=== PATIENT | male | born 1990 | race Caucasian/White ===

== ENCOUNTER 2020-03-12 13:22 | Outpatient (REF) | payer OTHER, SELFPAY | END 2020-03-12 13:23 | disposition home or self-care (01) | LOC: HO.LAB 13:22 | PROVIDERS: Visit Provider Internal Medicine | DX: Z20.828 Contact with and (suspected) exposure to other viral communicable diseases (principal) | CPT/HCPCS: 36415; C9803; U0003 ==

== ENCOUNTER 2021-03-10 11:32 | Outpatient (REF) | payer OTHER, SELFPAY ==
[2021-03-10 13:29] LABS: Binax Internal Control QC Valid; Binax Now Covid-19 Ag Negative (Negative)
== END 2021-03-10 11:33 | disposition home or self-care (01) ==
LOC: HO.LAB 11:32
PROVIDERS: Visit Provider Internal Medicine
DX: Z20.822 Contact with and (suspected) exposure to COVID-19 (principal)
CPT/HCPCS: 36415; C9803

== ENCOUNTER 2021-03-17 10:43 | Emergency (ER) | payer MEDICAID, SELFPAY ==
[2021-03-17 11:46] VITALS: BP 147/86; PULSE 74; RESP 16; O2SAT 100; BMI 34.9
--- NOTE | 2021-03-17 13:24 | ED.LOWEXIN ---
HPI - Extremity Injury (Lower) General Chief Complaint: Extremity Injury, Lower Stated Complaint: R leg injury Time Seen by Provider: 03/17/21 13:08 History of Present Illness HPI Narrative: Patient complains of right leg pain when he was dancing and felt a pop in the back of his right leg yesterday and now the leg hurts and it is hard to walk normally or bear weight on No other injury no other complaint no numbness weakness or tingling Related Data Previous Rx's Medication Instructions Recorded ibuprofen 600 mg tablet 600 mg PO Q6H PRN #30 tab 03/17/21 Allergies Allergy/AdvReac Type Severity Reaction Status Date / Time No Known Allergies Allergy Verified 03/17/21 13:28 Review of Systems Review of Systems: Positive for right leg pain and injury Negatives are no headache no head injury no neck pain no back pain no numbness weakness or tingling no lacerations no other joint pains no other extremity pains Yes all other systems are reviewed and are negative PMFSH Past Medical History Source: nursing notes reviewed Medical History (Updated 03/17/21 @ 13:28 by RADHA Fletcher) No known health problems Social History Social History Advance Directives: No Advance Directives Information Provided: Yes Physical Exam Vital Signs: Vital Signs: Last Vital Signs Pulse 74 03/17/21 11:46 Resp 16 03/17/21 11:46 BP 147/86 H 03/17/21 11:46 Pulse Ox 100 03/17/21 11:46 BMI result Body Mass Index 34.9 General appearance no acute distress comfortable in wheelchair Head is normocephalic atraumatic Neck is supple Respiratory no distress Extremities full range of motion x4 Right leg exam there is tenderness in the posterior calf area it is normal in appearance no ecchymosis no obvious swelling or defect, the knee has full range of motion and is not tender the ankle has full range of motion, leg is neurovascular intact distal and gait is a limping gait Course Course Course Narrative: Patient with likely muscle tear to right lower leg is given an Jerome bandage and crutches and will follow with orthopedics Discharge Plan Discharge Clinical Impression: Muscle tear Patient Disposition: Home, Self-Care Additional Instructions: You tore muscle in the back of your right leg Usually this improves quickly but you will not be back to full activity for 4-8 weeks, but usually walking becomes a lot easier within several days Follow with orthopedist, physical therapy may be helpful if needed Return any time any worse condition or any concerns You could use Tylenol or Motrin as needed Prescriptions: New ibuprofen 600 mg tablet 600 mg PO Q6H PRN (Reason: pain) Qty: 30 RF: 0 Referrals: Guanakito Mayer MD [Physician] - 10 days (Right calf muscle tear) Stand Alone Forms: Work/School Release Discharge Date/Time: 03/17/21 14:56
== END 2021-03-17 14:56 | disposition home or self-care (01) ==
PROVIDERS: Emergency Provider Emergency Medicine
DX: S86.911A Strain of unspecified muscle(s) and tendon(s) at lower leg level, right leg, initial encounter (principal); X50.1XXA Overexertion from prolonged static or awkward postures, initial encounter; Y93.41 Activity, dancing; Y92.9 Unspecified place or not applicable; Y99.9 Unspecified external cause status
CPT/HCPCS: 99281; 99283

== ENCOUNTER 2021-07-21 13:06 | Outpatient (REF) | payer MEDICAID, SELFPAY ==
[2021-07-21 13:57] LABS: COVID-19 Test Positive (Negative)
== END 2021-07-21 13:07 | disposition home or self-care (01) ==
LOC: HO.LAB 13:06
PROVIDERS: Visit Provider Internal Medicine
DX: Z20.822 Contact with and (suspected) exposure to COVID-19 (principal)
CPT/HCPCS: 87635; C9803

== ENCOUNTER 2022-04-26 20:17 | Observation (INO) | payer MEDICAID, SELFPAY ==
--- NOTE | ~2022-04-26 | XR_ITS ---
EXAMINATION: XR CHEST, 2 VIEWS CLINICAL INFORMATION: Left-sided chest pain. COMPARISON: None. TECHNIQUE: PA and lateral views of the chest were obtained. FINDINGS: Lungs are clear. No consolidation, pneumothorax, or pleural effusion. Cardiac and mediastinal contours are normal. Pulmonary vasculature is unremarkable. Trachea is midline. Osseous structures are unremarkable. XR/XR chest 2V IMPRESSION: Normal chest radiographs.
[2022-04-26 20:19] VITALS: BP 146/92; PULSE 138; RESP 18; TEMP 36; O2SAT 97; BMI 34.7
--- NOTE | 2022-04-26 20:20 | ED_ITS ---
HPI - Arrhythmia/Palpitations General Chief Complaint: Chest Pain <RADHA Chicas - Last Filed: 04/26/22 20:24> Stated Complaint: Chest pain, palpitations <RADHA Chicas - Last Filed: 04/26/22 20:24> Time Seen by Provider: 04/26/22 22:58 <RADHA Chicas - Last Filed: 04/26/22 20:24> Source: patient <RADHA Mar - Last Filed: 04/27/22 16:04> Mode of arrival: ambulatory <RADHA Mar - Last Filed: 04/27/22 16:04> Limitations: no limitations <RADHA Mar - Last Filed: 04/27/22 16:04> History of Present Illness HPI narrative: 31-year-old male with no past medical history presents for chest pain and palpitations. Patient tells me he has been having palpitations on and off for the past year. Today he was leaving his sister's house and felt sudden 10/10 chest pain. The pain began on his left side and radiated to his shoulder, back, armpit. Patient states that he cannot take a deep breath due to the pain, denies trauma. Pain is intermittent and is 5/10 when I took his history. Patient states he has a slight headache (feels like his typical, pressure to head, without vision changes or dizziness). Patient denies recent procedures and not moving for extended periods of time. Patient is not on blood thinners. Patient denies alcohol use, tobacco use. Patient admits to daily marijuana use, last used prior to arival no other drigs.. Denies nausea, vomiting, bowel changes, visual changes, loss of consciousness,dizziness, lower extremity swelling or pain. No personal cardiac history. Mother has some sort of heart issue he tells me worse she has a pacemaker. No history of sudden cardiac . Patient reports being under a moderate amount of stress due to his mother being sick and his father having dementia. <RADHA Mar - Last Filed: 04/27/22 16:04> Related Data Home Medications: Previous Rx's Medication Instructions Recorded heparin (porcine) 25,000 unit/250 25,000 unit (250 mL) continuous IV 04/27/22 mL in 0.45 % sodium chloride IV infusion .Q0M #6,000 mL soln <RADHA Chicas - Last Filed: 04/26/22 20:24> Allergies/Adverse Reactions: Allergies Allergy/AdvReac Type Severity Reaction Status Date / Time No Known Allergies Allergy Verified 03/17/21 13:28 <RADHA Chicas - Last Filed: 04/26/22 20:24> Review of Systems Review of Systems: Constitutional : No Weight loss, No Fever, No Chills, No Fatigue, No Malaise ENT/Mouth : No sore throat, No Rhinorrhea Eyes: No Eye Pain, No Swelling, No Redness Cardiovascular : + Chest Pain, No SOB, + Dyspnea on Exertion, No Orthopnea, No Edema, + Palpitations Respiratory : No Cough, No Sputum, No Wheezing Gastrointestinal : No Nausea, No Vomiting, No Diarrhea, No Constipation, No abdominal Pain, No Hematochezia, No Melena Genitourinary : No Dysuria, No Urinary Frequency, No Hematuria, Musculoskeletal : No joint pain, No Myalgias, No Joint Swelling Skin : No Skin Lesions, No rash Neuro : No Weakness, No Numbness, No Dizziness, + Headache Psych : No Anxiety/Panic, No Depression All other systems reviewed and are negative <RADHA Mar - Last Filed: 04/27/22 16:04> Yes all other systems are reviewed and are negative <RADHA Mar Last Filed: 04/27/22 16:04> PMFSH Past Medical History Attestation statement: The following information was validated with the patient. <RADHA Mar - Last Filed: 04/27/22 16:04> Source: old records reviewed and nursing notes reviewed <RADHA Mar - Last Filed: 04/27/22 16:04> Medical History: Medical History No known health problems <RADHA Chicas Last Filed: 04/26/22 20:24> Surgical History: Surgical History No pertinent past surgical history <RADHA Chicas Last Filed: 04/26/22 20:24> Family History Family History: Family History (Updated 04/27/22 @ 10:08 by Teo Medina MD) Mother Cardiomyopathy <RADHA Chicas - Last Filed: 04/26/22 20:24> Social History Social History: Social History Use of substances other than those prescribed or required for medical reasons: No Advance Directives: No Advance Directives Information Provided: No service: No Current occupational status: employed <RADHA Chicas - Last Filed: 04/26/22 20:24> Physical Exam Vital Signs: Vital Signs: Last Vital Signs Temp 98.0 F 04/27/22 15:51 Pulse 94 04/27/22 15:51 Resp 16 04/27/22 15:51 BP 133/65 04/27/22 15:51 Pulse Ox 97 04/27/22 15:51 O2 Del Method 04/27/22 15:51 BMI result Body Mass Index 34.7 <RADHA Chicas - Last Filed: 04/26/22 20:24> Vital Signs: Last Vital Signs Temp 98.0 F 04/27/22 15:51 Pulse 94 04/27/22 15:51 Resp 16 04/27/22 15:51 BP 133/65 04/27/22 15:51 Pulse Ox 97 04/27/22 15:51 O2 Del Method 04/27/22 15:51 BMI result Body Mass Index 34.7 vss <RADHA Mar - Last Filed: 04/27/22 16:04> Appearance: Alert.? Oriented X3.? No acute distress.? Head: Normocephalic, atraumatic, no step-offs or deformities Eyes: Pupils equal, round and reactive to light.? ENT: Pharynx normal.? Neck: Normal inspection.? Neck supple.? CVS: Rapid rate normal rhythm likely sinus tachycardia..? Pulses normal.? Respiratory: No respiratory distress.? Breath sounds normal.? Abdomen: Soft and nontender.? Skin: Skin warm and dry.? Normal skin color.? Normal skin turgor.? Extremities: No lower extremity edema.? No calf ttp. 5/5 strength to bilateral upper and lower extremities Back: No midline tenderness, no C-spine tenderness, full range of motion, no CVA tenderness bilaterally Neuro: Oriented X 3.? No motor deficit.? No sensory deficit. CN 2-12 intact . Normal [id number], onek-ud-pamb, steady tandem gait. Normal rapid al ternating movements. NIH stroke scale 0. <RADHA Mar - Last Filed: 04/27/22 16:04> Course Course Course Narrative: RME - 31 yo male with no medical problems presents to the ER for evaluation of heart palpitations and chest tightness that started 10 minutes ago while walking outside. Reports intermittent palpitations for the last year but not as severe, today felt like he was having a heart attack. Smoked marijuana tonight before symptoms started. HR 130-140 in triage with BP 140/90. question anxiety related/THC related - will get EKG, CXR and basic labs. to go for EKG now. <RADHA Chicas - Last Filed: 04/26/22 20:24> Reevaluation(s) Reevaluation #1: CBC appears to be within normal limits. Chemistry with no acute findings requiring intervention. Patient's troponin is noted to be elevated 61.0, repeat troponin ordered at this time, EKG she who is sinus tachycardia no ST elevations or inversions concerning for ischemia. No previous EKGs to compare with. CXR unremarkable. <RADHA Mar - Last Filed: 04/27/22 16:04> Time: 23:47 <RADHA Mar - Last Filed: 04/27/22 16:04> Reevaluation #2: D-dimer negative. Unlikely that this is a PE. Patient's vital signs improved after Toradol. Patient no longer tachycardic, saturating well on room air. He reports pain has completely subsided. Will wait for repeat troponin. <RADHA Mar - Last Filed: 04/27/22 16:04> Time: 00:44 <RADHA Mar Last Filed: 04/27/22 16:04> Reevaluation #3: Documenting at this time due to a down time in the system. Patient's 2nd troponin was elevated, at that time patient was pain free however based off of his family history with mother with pacemaker, sudden-onset chest pain with exertion, elevated troponins plan is to admit patient to the hospital. I did discuss this case with Dr. Medina who agrees with hospital admission. I did ask him if he had any other recommendations in terms of medications, I had only given patient Toradol with relief of symptoms. He he had no further recommendations in terms of medications. Patient to be admitted to the hospital to Dr. Cox <RADHA Mar - Last Filed: 04/27/22 16:04> Medications Administered Generic Name Dose Route Start Last Admin Trade Name Freq PRN Reason Stop Dose Admin Docusate Sodium 100 mg 04/27/22 09:00 04/27/22 10:07 Docusate Sodium 100 Mg Capsule PO 100 mg BID ARIANA Administration Heparin Sodium/Sodium Chloride 25,000 unit in 250 mls @ 0 mls/hr 04/27/22 15:00 04/27/22 15:44 Heparin Sodium,Porcine/1/2ns IVCONT 12 units/kg/hr .Q0M ARIANA 9.92 mls/hr Administration Protocol Per Protocol Sodium Chloride 3 ml 04/27/22 08:00 04/27/22 14:31 0.9 % Sodium Chloride Flush 3 Ml Syringe IVFLUSH 3 ml QSHIFT ARIANA Administration Discontinued Medications Generic Name Dose Route Start Last Admin Trade Name Freq PRN Reason Stop Dose Admin Aspirin 325 mg 04/27/22 14:22 04/27/22 14:31 Aspirin Enteric Coated 325 Mg Tablet.Dr YUN 04/27/22 14:23 325 mg ONCE ONE Administration Heparin Sodium (Porcine) 4,000 unit 04/27/22 14:24 04/27/22 15:29 Heparin Sodium,Porcine 5,000 Unit/Ml Vial IVPUSH 04/27/22 14:25 4,000 unit ONCE ONE Administration Ketorolac Tromethamine 30 mg 04/27/22 00:06 04/27/22 00:33 Ketorolac Tromethamine 15 Mg/Ml Vial IM 04/27/22 00:07 30 mg ONCE ONE Administration <RADHA Chicas - Last Filed: 04/26/22 20:24> Medications Administered Generic Name Dose Route Start Last Admin Trade Name Freq PRN Reason Stop Dose Admin Docusate Sodium 100 mg 04/27/22 09:00 04/27/22 10:07 Docusate Sodium 100 Mg Capsule PO 100 mg BID ARIANA Administration Heparin Sodium/Sodium Chloride 25,000 unit in 250 mls @ 0 mls/hr 04/27/22 15:00 04/27/22 15:44 Heparin Sodium,Porcine/1/2ns IVCONT 12 units/kg/hr .Q0M ARIANA 9.92 mls/hr Administration Protocol Per Protocol Sodium Chloride 3 ml 04/27/22 08:00 04/27/22 14:31 0.9 % Sodium Chloride Flush 3 Ml Syringe IVFLUSH 3 ml QSHIFT ARIANA Administration Discontinued Medications Generic Name Dose Route Start Last Admin Trade Name Samson PRN Reason Stop Dose Admin Aspirin 325 mg 04/27/22 14:22 04/27/22 14:31 Aspirin Enteric Coated 325 [address] Tablet.Dr YUN 04/27/22 14:23 325 mg ONCE ONE Administration Heparin Sodium (Porcine) 4,000 unit 04/27/22 14:24 04/27/22 15:29 Heparin Sodium,Porcine 5,000 Unit/Ml Vial IVPUSH 04/27/22 14:25 4,000 unit ONCE ONE Administration Ketorolac Tromethamine 30 mg 04/27/22 00:06 04/27/22 00:33 Ketorolac Tromethamine 15 Mg/Ml Vial IM 04/27/22 00:07 30 mg ONCE ONE Administration <RADHA Mar - Last Filed: 04/27/22 16:04> Medical Decision Making Medical Decision Making MDM Narrative: 31-year-old male presents with chest pain and palpitations worsening over the past few hours. Physical exam benign although patient does report pain with deep breathing History and physical examination concerning for possible anxiety, or noncardiac related chest pain. Low suspicion for ACS, PE. No recent illness lowering suspicion for pericardiits however still some concern. History and physical e xam not consistent with dissection, myocarditis or endocarditis. Plan at this time basic labs, troponin, EKG, D-dimer. <RADHA Mar Last Filed: 04/27/22 16:04> Differential Diagnosis Differential Diagnoses: The differential diagnosis associated with the presentation includes <RADHA Mar Last Filed: 04/27/22 16:04> History and physical examination concerning for possible anxiety, or noncardiac related chest pain. Low suspicion for ACS, PE. No recent illness lowering suspicion for pericardiits however still some concern. History and physical exam not consistent with dissection, myocarditis or endocarditis. <RADHA Mar - Last Filed: 04/27/22 16:04> Admission/Observation Consideration of admission/observation: Escalation of care including admission/observation considered <RADHA Mar - Last Filed: 04/27/22 16:04> Lab Data MDM Lab Attestation statement: I reviewed the patient's lab results. <RADHA Mar - Last Filed: 04/27/22 16:04> Result Diagrams: 04/26/22 20:37 04/26/22 20:37 <RADHA Chicas - Last Filed: 04/26/22 20:24> Labs: Lab Results 04/26/22 04/26/22 04/26/22 Range/Units 20:37 20:37 22:25 WBC 9.4 (4.8-10.8) X10*3/uL RBC 5.38 (4.60-5.80) X10*6/uL Hgb 16.0 (14.0-18.0) g/dl Hct 45.5 (42.0-52.0) % MCV 84.6 (80.0-98.0) fL MCH 29.7 (27.0-33.0) pg MCHC 35.2 (31.0-36.0) g/dl RDW 11.9 (11.0-16.0) % Plt Count 243 (160-400) X10*3/uL MPV 10.2 (9.4-12.4) fL Immature Gran % (Auto) 0.2 (0.0-0.4) % Neut % (Auto) 59.8 (45-73) % Lymph % (Auto) 33.3 (20-40) % [place] % (Auto) 5.6 (2-11) % Eos % (Auto) 0.6 (0-4) % Baso % (Auto) 0.5 (0-2) % Lymph # (Auto) 3.1 (1.2-4.9) X10*3/uL [place] # (Auto) 0.5 (0.1-1.2) X10*3/uL Eos # (Auto) 0.1 (0.0-0.4) X10*3/uL Baso # (Auto) 0.1 (0.0-0.2) X10*3/uL Abs Immat Gran (auto) 0.02 (0.00-0.03) X10*3/uL Absolute Neuts (auto) 5.6 (2.0-8.3) x10*3/uL Absolute Nucleated RBC 0.000 (0.0-0.012) X10*3/uL Nucleated RBC % (auto) 0.0 (0.0-0.2) /100WBC D-Dimer High Sensitivty NG/ML Sodium 142 (135-145) mmol/L Potassium 3.5 (3.3-5.1) mmol/L Chloride 104 (96-108) mmol/L Carbon Dioxide 25 (22-29) mmol/L Anion Gap 17 (12-20) BUN 16 (9-16) mg/dL Creatinine 1.31 (0.5-1.4) mg/dL Estim Creat Clear Calc 76.9 Estimated GFR > 60 Random Glucose 179 H (60-115) mg/dL Calcium 9.7 (8.4-10.2) mg/dL Magnesium 1.7 (1.6-2.6) mg/dL Total Bilirubin 1.0 (0.0-1.0) mg/dL Direct Bilirubin 0.3 (0.0-0.5) mg/dL AST 19 (5-37) U/L ALT 25 (0-40) U/L Alkaline Phosphatase 58 (39-117) U/L Troponin I High Sens 61.0 H (<3.5-35.0) ng/L Total Protein 7.2 (6.5-8.0) g/dL Albumin 4.8 (3.5-5.0) g/dL TSH 0.52 (0.32-4.0) uIU/mL COVID-19 ([facility]) (Negative) COVID-19 Clin Com 04/27/22 04/27/22 04/27/22 Range/Units 00:23 00:23 02:20 WBC (4.8-10.8) X10*3/uL RBC (4.60-5.80) X10*6/uL Hgb (14.0-18.0) g/dl Hct (42.0-52.0) % MCV (80.0-98.0) fL MCH (27.0-33.0) pg MCHC (31.0-36.0) g/dl RDW (11.0-16.0) % Plt Count (160-400) X10*3/uL MPV (9.4-12.4) fL Immature Gran % (Auto) (0.0-0.4) % Neut % (Auto) (45-73) % Lymph % (Auto) (20-40) % [place] % (Auto) (2-11) % Eos % (Auto) (0-4) % Baso % (Auto) (0-2) % Lymph # (Auto) (1.2-4.9) X10*3/uL [place] # (Auto) (0.1-1.2) X10*3/uL Eos # (Auto) (0.0-0.4) X10*3/uL Baso # (Auto) (0.0-0.2) X10*3/uL Abs Immat Gran (auto) (0.00-0.03) X10*3/uL Absolute Neuts (auto) (2.0-8.3) x10*3/uL Absolute Nucleated RBC (0.0-0.012) X10*3/uL Nucleated RBC % (auto) (0.0-0.2) /100WBC D-Dimer High Sensitivty < 150 NG/ML Sodium (135-145) mmol/L Potassium (3.3-5.1) mmol/L Chloride (96-108) mmol/L Carbon Dioxide (22-29) mmol/L Anion Gap (12-20) BUN (9-16) mg/dL Creatinine (0.5-1.4) mg/dL Estim Creat Clear Calc Estimated GFR Random Glucose (60-115) mg/dL Calcium (8.4-10.2) mg/dL Magnesium (1.6-2.6) mg/dL Total Bilirubin (0.0-1.0) mg/dL Direct Bilirubin (0.0-0.5) mg/dL AST (5-37) U/L ALT (0-40) U/L Alkaline Phosphatase (39-117) U/L Troponin I High Sens 74.4 H 68.6 H (<3.5-35.0) ng/L Total Protein (6.5-8.0) g/dL Albumin (3.5-5.0) g/dL TSH (0.32-4.0) uIU/mL COVID-19 ([facility]BY) (Negative) COVID-19 Clin Com 04/27/22 Range/Units 03:10 WBC (4.8-10.8) X10*3/uL RBC (4.60-5.80) X10*6/uL Hgb (14.0-18.0) g/dl Hct (42.0-52.0) % MCV (80.0-98.0) fL MCH (27.0-33.0) pg MCHC (31.0-36.0) g/dl RDW (11.0-16.0) % Plt Count (160-400) X10*3/uL MPV (9.4-12.4) fL Immature Gran % (Auto) (0.0-0.4) % Neut % (Auto) (45-73) % Lymph % (Auto) (20-40) % [place] % (Auto) (2-11) % Eos % (Auto) (0-4) % Baso % (Auto) (0-2) % Lymph # (Auto) (1.2-4.9) X10*3/uL [place] # (Auto) (0.1-1.2) X10*3/uL Eos # (Auto) (0.0-0.4) X10*3/uL Baso # (Auto) (0.0-0.2) X10*3/uL Abs Immat Gran (auto) (0.00-0.03) X10*3/uL Absolute Neuts (auto) (2.0-8.3) x10*3/uL Absolute Nucleated RBC (0.0-0.012) X10*3/uL Nucleated RBC % (auto) (0.0-0.2) /100WBC D-Dimer High Sensitivty NG/ML Sodium (135-145) mmol/L Potassium (3.3-5.1) mmol/L Chloride (96-108) mmol/L Carbon Dioxide (22-29) mmol/L Anion Gap (12-20) BUN (9-16) mg/dL Creatinine (0.5-1.4) mg/dL Estim Creat Clear Calc Estimated GFR Random Glucose (60-115) mg/dL Calcium (8.4-10.2) mg/dL Magnesium (1.6-2.6) mg/dL Total Bilirubin (0.0-1.0) mg/dL Direct Bilirubin (0.0-0.5) mg/dL AST (5-37) U/L ALT (0-40) U/L Alkaline Phosphatase (39-117) U/L Troponin I High Sens (<3.5-35.0) ng/L Total Protein (6.5-8.0) g/dL Albumin (3.5-5.0) g/dL TSH (0.32-4.0) uIU/mL COVID-19 ([facility]) Negative (Negative) COVID-19 Clin Com See Note <RADHA Chicas - Last Filed: 04/26/22 20:24> Lab Results 04/26/22 04/26/22 04/26/22 Range/Units 20:37 20:37 22:25 WBC 9.4 (4.8-10.8) X10*3/uL RBC 5.38 (4.60-5.80) X10*6/uL Hgb 16.0 (14.0-18.0) g/dl Hct 45.5 (42.0-52.0) % MCV 84.6 (80.0-98.0) fL MCH 29.7 (27.0-33.0) pg MCHC 35.2 (31.0-36.0) g/dl RDW 11.9 (11.0-16.0) % Plt Count 243 (160-400) X10*3/uL MPV 10.2 (9.4-12.4) fL Immature Gran % (Auto) 0.2 (0.0-0.4) % Neut % (Auto) 59.8 (45-73) % Lymph % (Auto) 33.3 (20-40) % [place] % (Auto) 5.6 (2-11) % Eos % (Auto) 0.6 (0-4) % Baso % (Auto) 0.5 (0-2) % Lymph # (Auto) 3.1 (1.2-4.9) X10*3/uL [place] # (Auto) 0.5 (0.1-1.2) X10*3/uL Eos # (Auto) 0.1 (0.0-0.4) X10*3/uL Baso # (Auto) 0.1 (0.0-0.2) X10*3/uL Abs Immat Gran (auto) 0.02 (0.00-0.03) X10*3/uL Absolute Neuts (auto) 5.6 (2.0-8.3) x10*3/uL Absolute Nucleated RBC 0.000 (0.0-0.012) X10*3/uL Nucleated RBC % (auto) 0.0 (0.0-0.2) /100WBC D-Dimer High Sensitivty NG/ML Sodium 142 (135-145) mmol/L Potassium 3.5 (3.3-5.1) mmol/L Chloride 104 (96-108) mmol/L Carbon Dioxide 25 (22-29) mmol/L Anion Gap 17 (12-20) BUN 16 (9-16) mg/dL Creatinine 1.31 (0.5-1.4) mg/dL Estim Creat Clear Calc 76.9 Estimated GFR > 60 Random Glucose 179 H (60-115) mg/dL Calcium 9.7 (8.4-10.2) mg/dL Magnesium 1.7 (1.6-2.6) mg/dL Total Bilirubin 1.0 (0.0-1.0) mg/dL Direct Bilirubin 0.3 (0.0-0.5) mg/dL AST 19 (5-37) U/L ALT 25 (0-40) U/L Alkaline Phosphatase 58 (39-117) U/L Troponin I High Sens 61.0 H (<3.5-35.0) ng/L Total Protein 7.2 (6.5-8.0) g/dL Albumin 4.8 (3.5-5.0) g/dL TSH 0.52 (0.32-4.0) uIU/mL COVID-19 ([facility]) (Negative) COVID-19 Clin Com 04/27/22 04/27/22 04/27/22 Range/Units 00:23 00:23 02:20 WBC (4.8-10.8) X10*3/uL RBC (4.60-5.80) X10*6/uL Hgb (14.0-18.0) g/dl Hct (42.0-52.0) % MCV (80.0-98.0) fL MCH (27.0-33.0) pg MCHC (31.0-36.0) g/dl RDW (11.0-16.0) % Plt Count (160-400) X10*3/uL MPV (9.4-12.4) fL Immature Gran % (Auto) (0.0-0.4) % Neut % (Auto) (45-73) % Lymph % (Auto) (20-40) % [place] % (Auto) (2-11) % Eos % (Auto) (0-4) % Baso % (Auto) (0-2) % Lymph # (Auto) (1.2-4.9) X10*3/uL [place] # (Auto) (0.1-1.2) X10*3/uL Eos # (Auto) (0.0-0.4) X10*3/uL Baso # (Auto) (0.0-0.2) X10*3/uL Abs Immat Gran (auto) (0.00-0.03) X10*3/uL Absolute Neuts (auto) (2.0-8.3) x10*3/uL Absolute Nucleated RBC (0.0-0.012) X10*3/uL Nucleated RBC % (auto) (0.0-0.2) /100WBC D-Dimer High Sensitivty < 150 NG/ML Sodium (135-145) mmol/L Potassium (3.3-5.1) mmol/L Chloride (96-108) mmol/L Carbon Dioxide (22-29) mmol/L Anion Gap (12-20) BUN (9-16) mg/dL Creatinine (0.5-1.4) mg/dL Estim Creat Clear Calc Estimated GFR Random Glucose (60-115) mg/dL Calcium (8.4-10.2) mg/dL Magnesium (1.6-2.6) mg/dL Total Bilirubin (0.0-1.0) mg/dL Direct Bilirubin (0.0-0.5) mg/dL AST (5-37) U/L ALT (0-40) U/L Alkaline Phosphatase (39-117) U/L Troponin I High Sens 74.4 H 68.6 H (<3.5-35.0) ng/L Total Protein (6.5-8.0) g/dL Albumin (3.5-5.0) g/dL TSH (0.32-4.0) uIU/mL COVID-19 ([facility]) (Negative) COVID-19 Clin Com 04/27/22 Range/Units 03:10 WBC (4.8-10.8) X10*3/uL RBC (4.60-5.80) X10*6/uL Hgb (14.0-18.0) g/dl Hct (42.0-52.0) % MCV (80.0-98.0) fL MCH (27.0-33.0) pg MCHC (31.0-36.0) g/dl RDW (11.0-16.0) % Plt Count (160-400) X10*3/uL MPV (9.4-12.4) fL Immature Gran % (Auto) (0.0-0.4) % Neut % (Auto) (45-73) % Lymph % (Auto) (20-40) % [place] % (Auto) (2-11) % Eos % (Auto) (0-4) % Baso % (Auto) (0-2) % Lymph # (Auto) (1.2-4.9) X10*3/uL [place] # (Auto) (0.1-1.2) X10*3/uL Eos # (Auto) (0.0-0.4) X10*3/uL Baso # (Auto) (0.0-0.2) X10*3/uL Abs Immat Gran (auto) (0.00-0.03) X10*3/uL Absolute Neuts (auto) (2.0-8.3) x10*3/uL Absolute Nucleated RBC (0.0-0.012) X10*3/uL Nucleated RBC % (auto) (0.0-0.2) /100WBC D-Dimer High Sensitivty NG/ML Sodium (135-145) mmol/L Potassium (3.3-5.1) mmol/L Chloride (96-108) mmol/L Carbon Dioxide (22-29) mmol/L Anion Gap (12-20) BUN (9-16) mg/dL Creatinine (0.5-1.4) mg/dL Estim Creat Clear Calc Estimated GFR Random Glucose (60-115) mg/dL Calcium (8.4-10.2) mg/dL Magnesium (1.6-2.6) mg/dL Total Bilirubin (0.0-1.0) mg/dL Direct Bilirubin (0.0-0.5) mg/dL AST (5-37) U/L ALT (0-40) U/L Alkaline Phosphatase (39-117) U/L Troponin I High Sens (<3.5-35.0) ng/L Total Protein (6.5-8.0) g/dL Albumin (3.5-5.0) g/dL TSH (0.32-4.0) uIU/mL COVID-19 ([facility]BY) Negative (Negative) COVID-19 Clin Com See Note <RADHA Mar - Last Filed: 04/27/22 16:04> Independent Interpretation I performed an independent interpretation of an: Plain X-Ray (Unremarkable) <RADHA Mar - Last Filed: 04/27/22 16:04> Radiology Impression Discussion of test interpretation with radiology: I have reviewed the radiologist's reading. <RADHA Mar - Last Filed: 04/27/22 16:04> External Record Review External record reviewed: Inpatient record, Office record, Outpatient record, Prior outpatient labs, Prior outpatient radiology and Primary care record <RADHA Mar - Last Filed: 04/27/22 16:04> Core Measures AMI core measures followed: Yes <RADHA Mar - Last Filed: 04/27/22 16:04> Measure exclusions: not indicated <RADHA Mar - Last Filed: 04/27/22 16:04> Critical Care Time Critical Care Time Critical Care Time: Yes <RADHA Mar - Last Filed: 04/27/22 16:04> Total Critical Care Time: 35 <RADHA Mar - Last Filed: 04/27/22 16:04> Attestation: I attest to this time spent taking care of the patient, obtaining history, physical, reviewing labs, imaging, speaking to my attending, speaking to specialist. <RADHA Mar - Last Filed: 04/27/22 16:04> Discharge Plan Discharge Clinical Impression: Unstable angina pectoris, Heart palpitations, Anxiety <RADHA Chicas - Last Filed: 04/26/22 20:24> Patient Disposition: Admitted As Inpatient <RADHA Chicas - Last Filed: 04/26/22 20:24>
--- NOTE | 2022-04-26 20:23 | ECG_ITS ---
Test Reason : CHEST PAIN Blood Pressure : / mmHG Vent. Rate : 124 BPM Atrial Rate : 124 BPM P-R Int : 122 ms QRS Dur : 086 ms QT Int : 318 ms P-R-T Axes : 060 037 026 degrees QTc Int : 456 ms Sinus tachycardia Possible Left atrial enlargement Nonspecific ST and T wave abnormality Borderline ECG No previous ECGs available Referred By: Anu Hurst Electronically Signed By:CHANCE COOK
[2022-04-26 20:41] LABS: MANUAL DIFF FLAG NO
[2022-04-26 20:42] LABS: Basophils Absolute Auto 0.1 X10*3/uL (0.0-0.2); Basophils Percent Auto 0.5 % (0-2); Eosinophils Absolute Auto 0.1 X10*3/uL (0.0-0.4); Eosinophils Percent Auto 0.6 % (0-4); Hematocrit 45.5 % (42.0-52.0); Imm Gran Abs Auto 0.02 X10*3/uL (0.00-0.03); Imm Gran Pct Auto 0.2 % (0.0-0.4); Lymphocytes Absolute Auto 3.1 X10*3/uL (1.2-4.9); Lymphocytes Percent Auto 33.3 % (20-40); Mean Corpuscular HGB Conc 35.2 g/dl (31.0-36.0); Mean Corpuscular Hemoglobin 29.7 pg (27.0-33.0); Mean Corpuscular Volume 84.6 fL (80.0-98.0); Mean Platelet Volume 10.2 fL (9.4-12.4); Monocytes Absolute Auto 0.5 X10*3/uL (0.1-1.2); Monocytes Percent Auto 5.6 % (2-11); Neutrophils Absolute Auto 5.6 x10*3/uL (2.0-8.3); Neutrophils Percent Auto 59.8 % (45-73); Platelet Count 243 X10*3/uL (160-400); Red Blood Count 5.38 X10*6/uL (4.60-5.80); Red Cell Distribution Width 11.9 % (11.0-16.0); White Blood Count 9.4 X10*3/uL (4.8-10.8)
[2022-04-26 21:03] LABS: Alanine Aminotransferase 25 U/L (0-40); Albumin Level 4.8 g/dL (3.5-5.0); Alkaline Phosphatase 58 U/L (39-117); Anion Gap 17 (12-20); Aspartate Amino Transferase 19 U/L (5-37); Bilirubin Direct 0.3 mg/dL (0.0-0.5); Blood Urea Nitrogen 16 mg/dL (9-16); Calcium 9.7 mg/dL (8.4-10.2); Carbon Dioxide 25 mmol/L (22-29); Chloride 104 mmol/L (96-108); Creatinine Clr Calc Pharmacy 76.9; Estimated Glomerular Filt Rate > 60; Glucose Random 179 mg/dL (60-115); Magnesium 1.7 mg/dL (1.6-2.6); Potassium 3.5 mmol/L (3.3-5.1); Sodium 142 mmol/L (135-145); Total Protein 7.2 g/dL (6.5-8.0)
[2022-04-26 21:18] LABS: TSH reflex Free T4 0.52 uIU/mL (0.32-4.0)
[2022-04-27] VITALS: BP 142/82; PULSE 77; RESP 16; TEMP 36.7; O2SAT 99
--- NOTE | 2022-04-27 | MHC.EDTECH ---
pt was hooked up to cardiac/vascular sonographer .
--- NOTE | 2022-04-27 | MHC.EDTECH ---
this pct assumed care of pt at 2300 ,rounding done ,vitals sign taken ,blood drawn and sent to lab .
[2022-04-27] MEDS: Ketorolac Tromethamine 15 MG/ML VIAL 30 MG IM (00:33)
--- NOTE | 2022-04-27 00:36 | PC.NURSE ---
pt a&o, denies any sob or chest pain at this time, pt medicated pr mar. pt on bedside monitor. NSR. Will continue to monitor.
[2022-04-27 00:40] LABS: D Dimer High Sensitivity < 150 NG/ML
[2022-04-27 00:51] LABS: Troponin-I High Sensitivity 74.4 ng/L (<3.5-35.0)
[2022-04-27 04:58] VITALS: BP 107/53; PULSE 54; RESP 16; TEMP 36.6; O2SAT 97
--- NOTE | 2022-04-27 05:00 | MHC.EDTECH ---
please see paper documentation .
--- NOTE | 2022-04-27 05:09 | PC.NURSE ---
please see paper documentation due to down time.
--- NOTE | 2022-04-27 05:24 | MHC.EDTECH ---
covid swab negitive please see paper chart
--- NOTE | 2022-04-27 05:27 | PC.NURSE ---
pt oob to bathroom no sign of distress at this time.
[2022-04-27 05:46] LABS: COVID-19 Test Negative (Negative); IDNOW Serial# BCCEAD1C
[2022-04-27 05:52] LABS: Troponin-I High Sensitivity 68.6 ng/L (<3.5-35.0)
--- NOTE | 2022-04-27 06:46 | PM.IMHP ---
History of Present Illness Date of Service: 04/27/22 Chief Complaint: chest pain this is a 31-year-old male with no significant past medical history presents to the hospital with complaints of chest pain and palpitations. Patient reports pain is left-sided, radiating to the under arm, constant, occurred when walking, worse with deep inspiration. Reports no similar in the past. Denies any shortness of breath, no abdominal pain nausea or vomiting, no headache or change in vision, no urinary symptoms and no lower extremity edema.he reports that he does have episodes of palpitations at random times are resolved spontaneously. This has been happening for several months. On arrival to the ED patient hemodynamically stable with a heart rate in the 130s sinus Tachycardia, resolved spontaneously now in the 70s Labs are significant for troponin initially of 61 increased to 74.4 decreased to 68.6, patient is COVID-19 positive Asymptomatic with no cough and no shortness of breath EKG reviewed by me shows T-wave inversions in V1, nonspecific ST T wave changes this was discussed with Cardiology, wants patient to be admitted for further evaluation Review of Systems Review of Systems: Yes all other systems are reviewed and are negative [facility] Medical History No known health problems Surgical History No pertinent past surgical history Social History Use of substances other than those prescribed or required for medical reasons: No Advance Directives: No Advance Directives Information Provided: No Meds Allergies Allergy/AdvReac Type Severity Reaction Status Date / Time No Known Allergies Allergy Verified 03/17/21 13:28 Active Medications: Current Medications Acetaminophen (Acetaminophen 325 Mg Tablet) 650 mg PO Q6H PRN PRN Reason: Pain, Mild (Pain Scale 1-3) Docusate Sodium (Docusate Sodium 100 Mg Capsule) 100 mg PO BID ARIANA Ondansetron HCl (Ondansetron Hcl 4 Mg/2 Ml Vial) 4 mg IVPUSH Q8H PRN PRN Reason: Nausea and Vomiting Sodium Chloride (0.9 % Sodium Chloride Flush 3 Ml Syringe) 3 ml IVFLUSH QSHIFT ARIANA Physical Exam Vital Signs and Narrative: Vital Signs: Last Vital Signs Temp 97.9 F 04/27/22 04:58 Pulse 54 04/27/22 04:58 Resp 16 04/27/22 04:58 BP 107/53 L 04/27/22 04:58 Pulse Ox 97 04/27/22 04:58 O2 Del Method 04/27/22 04:58 BMI result Body Mass Index 34.7 Const: General: cooperative and no acute distress Orientation/consciousness: patient oriented x3 Eyes: General: appearance normal, both eyes and all related structures Resp: Effort & Inspection: normal respiratory effort Auscultation: clear to auscultation bilaterally Cardio: Rate: regular rate Rhythm: regular rhythm GI: Palpation (GI): Soft to palpation Auscultation: normal bowel sounds Skin: General skin exam: no rashes or lesions noted Neuro: General: patient oriented x3 Cognition (Neuro): normal cognition Extrem: General: Yes normal to inspection and Yes no pedal edema Results Labs 04/26/22 20:37 04/26/22 20:37 Labs: Laboratory Results - last 24 hr 04/26/22 04/26/22 04/26/22 20:37 20:37 22:25 MCV 84.6 MCH 29.7 MCHC 35.2 RDW 11.9 Plt Count 243 MPV 10.2 Immature Gran % (Auto) 0.2 Neut % (Auto) 59.8 Lymph % (Auto) 33.3 [place] % (Auto) 5.6 Eos % (Auto) 0.6 Baso % (Auto) 0.5 Lymph # (Auto) 3.1 [place] # (Auto) 0.5 Eos # (Auto) 0.1 Baso # (Auto) 0.1 Abs Immat Gran (auto) 0.02 Absolute Neuts (auto) 5.6 Absolute Nucleated RBC 0.000 Nucleated RBC % (auto) 0.0 D-Dimer High Sensitivty Anion Gap 17 Estim Creat Clear Calc 76.9 Estimated GFR > 60 Random Glucose 179 H Calcium 9.7 Magnesium 1.7 Total Bilirubin 1.0 Direct Bilirubin 0.3 AST 19 ALT 25 Alkaline Phosphatase 58 Troponin I High Sens 61.0 H Total Protein 7.2 Albumin 4.8 TSH 0.52 COVID-19 (BOBBY) COVID-19 Clin Com 04/27/22 04/27/22 04/27/22 00:23 00:23 02:20 MCV MCH MCHC RDW Plt Count MPV Immature Gran % (Auto) Neut % (Auto) Lymph % (Auto) [place] % (Auto) Eos % (Auto) Baso % (Auto) Lymph # (Auto) [place] # (Auto) Eos # (Auto) Baso # (Auto) Abs Immat Gran (auto) Absolute Neuts (auto) Absolute Nucleated RBC Nucleated RBC % (auto) D-Dimer High Sensitivty < 150 Anion Gap Estim Creat Clear Calc Estimated GFR Random Glucose Calcium Magnesium Total Bilirubin Direct Bilirubin AST ALT Alkaline Phosphatase Troponin I High Sens 74.4 H 68.6 H Total Protein Albumin TSH COVID-19 (BOBBY) COVID-19 Clin Com 04/27/22 03:10 MCV MCH MCHC RDW Plt Count MPV Immature Gran % (Auto) Neut % (Auto) Lymph % (Auto) [place] % (Auto) Eos % (Auto) Baso % (Auto) Lymph # (Auto) [place] # (Auto) Eos # (Auto) Baso # (Auto) Abs Immat Gran (auto) Absolute Neuts (auto) Absolute Nucleated RBC Nucleated RBC % (auto) D-Dimer High Sensitivty Anion Gap Estim Creat Clear Calc Estimated GFR Random Glucose Calcium Magnesium Total Bilirubin Direct Bilirubin AST ALT Alkaline Phosphatase Troponin I High Sens Total Protein Albumin TSH COVID-19 (BOBBY) Negative COVID-19 Clin Com See Note Imaging Radiologist's Impressions: Impressions Chest X-Ray 04/26/22 20:42 IMPRESSION: Normal chest radiographs. Assessment and Plan (1) Chest pain: Status: Acute (2) Heart palpitations: Status: Acute (3) Elevated troponin: Status: Acute (4) COVID-19 virus infection: Status: Acute Plan 31 year old with no significant past medical history presents to the hospital complaints of palpitations and chest pain found to have COVID-19 positive # chest pain - ACS versus pericarditis - slightly elevated troponin - urine drug screen pending - no risk factors - no family history - at this time will admit, cardiology consult for evaluation # palpitations - likely sinus, EKG shows sinus tachycardia - UDS pending but patient denies using any cocaine or heroin - admit to telemetry # elevated troponin - possibly secondary to above - pericarditis in the setting of acute COVID infection versus ACS - cardiology evaluation pending # COVID-19 infection - asymptomatic with no shortness of breath or hypoxia - possibly cause of above - monitor symptoms DVT prophylaxis: Early ambulation Time Spent With Patient Time: Total time managing care of this patient today ____ minutes. Quality Stroke Does the patient have a stroke diagnosis?: No VTE Prior VTE?: No VTE Risk Level:: Medical - low VTE Device Contraindication: Treatment Not Indicated VTE Drug Contraindication: Treatment Not Indicated
[2022-04-27 07:04] LABS: MANUAL DIFF FLAG NO
[2022-04-27 07:06] LABS: Basophils Percent Auto 0.7 % (0-2); Eosinophils Absolute Auto 0.2 X10*3/uL (0.0-0.4); Eosinophils Percent Auto 3.9 % (0-4); Hematocrit 41.5 % (42.0-52.0); Hemoglobin 14.7 g/dl (14.0-18.0); Imm Gran Abs Auto 0.01 X10*3/uL (0.00-0.03); Imm Gran Pct Auto 0.2 % (0.0-0.4); Lymphocytes Absolute Auto 2.6 X10*3/uL (1.2-4.9); Lymphocytes Percent Auto 43.2 % (20-40); Mean Corpuscular HGB Conc 35.4 g/dl (31.0-36.0); Mean Corpuscular Hemoglobin 30.6 pg (27.0-33.0); Mean Corpuscular Volume 86.5 fL (80.0-98.0); Mean Platelet Volume 10.9 fL (9.4-12.4); Monocytes Absolute Auto 0.6 X10*3/uL (0.1-1.2); Monocytes Percent Auto 9.5 % (2-11); Neutrophils Absolute Auto 2.5 x10*3/uL (2.0-8.3); Neutrophils Percent Auto 42.5 % (45-73); Platelet Count 192 X10*3/uL (160-400); Red Cell Distribution Width 12.1 % (11.0-16.0)
[2022-04-27 07:35] LABS: Alanine Aminotransferase 21 U/L (0-40); Albumin Level 4.2 g/dL (3.5-5.0); Alkaline Phosphatase 49 U/L (39-117); Anion Gap 15 (12-20); Aspartate Amino Transferase 17 U/L (5-37); Bilirubin Total 1.1 mg/dL (0.0-1.0); Blood Urea Nitrogen 19 mg/dL (9-16); Calcium 9.3 mg/dL (8.4-10.2); Carbon Dioxide 27 mmol/L (22-29); Chloride 105 mmol/L (96-108); Creatinine Clr Calc Pharmacy 103.9; Estimated Glomerular Filt Rate > 60; Glucose Random 124 mg/dL (60-115); Potassium 3.5 mmol/L (3.3-5.1); Sodium 143 mmol/L (135-145); Total Protein 6.3 g/dL (6.5-8.0)
[2022-04-27 07:40] LABS: Amphetamine Screen Urine Not Detected (Not Detect); Barbiturates, Urine Not Detected (Not Detect); Benzodiazepines Screen Urine Not Detected (Not Detect); Cannabinoid Screen Urine POSITIVE (Not Detect); Cocaine Screen Urine Not Detected (Not Detect); Fentanyl, urine Not Detected (Not Detect); Opiate Screen Urine Not Detected (Not Detect); Phencyclidine Screen Urine Not Detected (Not Detect)
[2022-04-27 08:50] VITALS: BP 101/60; PULSE 76; RESP 18; TEMP 36.7; O2SAT 99
--- NOTE | 2022-04-27 09:00 | PHA.MEDREC ---
Pharmacy Consult ? Medication Reconciliation Pharmacy has completed the medication reconciliation. Patient reports no medications at home. Marian Benites, FrantzD
--- NOTE | 2022-04-27 09:37 | CA_ITS ---
Transthoracic Echocardiogram Patient (Last, First, Middle): Dash Roman, Gender: Male Date of : 1990 Age: 31 Procedure Date: 04/27/2022 Procedure Type: Transthoracic Echocardiogram Location: ER Height: 157.48 cm Weight: 86.18 kg BSA: 1.87 m2 Heart Rate: bpm BP: 101 / mmHg Occupational Ther: ROSARIO Referring MD: Teo Medina MD Symptoms: chest pain Study Quality: Adequate ECG Rhythm: Sinus Conclusions: - The left ventricular systolic function is normal. The calculated ejection fraction is 67% by biplane method. - No obvious valvular pathology seen on this study. Findings Left Ventricle Normal left ventricular cavity size. There is normal left ventricular wall thickness. The left ventricular systolic function is normal. The calculated ejection fraction is 67% by biplane method. There is no evidence of regional wall motion abnormalities. Diastolic function is normal for age. LV peak GLS -21.5%. Right Ventricle Normal right ventricular cavity size and systolic function. Atria Both atria are normal in size. Aortic Valve There is a normal trileaflet aortic valve. There is no aortic valve stenosis. There is no aortic valve regurgitation. Mitral Valve The mitral valve appears normal. There is no mitral valve regurgitation. There is no mitral valve stenosis. Pulmonic Valve The pulmonic valve is likely normal. Tricuspid Valve Normal tricuspid valve structure. There is no tricuspid valve regurgitation. Tricuspid regurgitation envelope is inadequate for calculation of right ventricular systolic pressure. Great Vessels The asc aorta is normal in size. Venous The inferior vena cava is normal in size and collapses greater than 50% with inspiration. Pericardium/Pleural There is no evidence of pericardial effusion. Prior Study Comparison No prior study available for comparison. Recommendations, Care & Conclusions No obvious valvular pathology seen on this study. Measurements 2D Linear Measurements IVSd: 0.99 0.6-0.9/0.6-1.0 cm LVIDd: 4.69 3.9-5.3/4.2-5.9 cm LVIDd Index: 2.51 2.4-3.2/2.2-3.1 cm/m2 LVIDs: 2.88 2.0-3.6 cm LVPWd: 0.96 0.7-1.1 cm LA Diam: 3.30 2.7-3.8/3.0-4.0 cm LAIDs Index: 1.76 1.5-2.3 cm/m2 LV Mass: 196.63 67-162/88-224 g LV Mass Index: 105.15 43-95/49-115 g/m2 LVOT Diam: 2.10 3.0+(-)1.3 cm 2D Systolic Function EF 4C: 64.20 >55% EF 2C: 67.50 >55% EF BiP: 67.30 >55% Mitral Valve MV Pk E: 0.73 MV PK A: 0.39 MV Decel Time: 296.00 E/A: 1.90 E'Lateral: 13.80 E'Medial: 10.60 E/E' Med: 6.90 E/E' Lat: 5.30 PHT: 87.00 MVA PHT: 2.53 Decel [place]: 2.46 Aortic Valve AoV Pk Ulices: 1.55 AoV Mn Ulices: 1.00 AoV VTI: 0.32 AoV Pk Grad: 10.00 Aov Mn Grad: 5.00 OWEN Cont.VTI: 2.32 LVOT LVOT Pk Luices: 1.04 LVOT Mn Ulices: 0.65 LVOT VTI: 0.21 LVOT Pk Grad: 4.00 LVOT Mn Grad: 2.00 LVOT Diam: 2.10 LVOT Area: 3.46 Diastolic Function MV Pk E: 0.73 MV Pk A: 0.39 E/A: 1.90 E'Medial: 10.60 E/E' Med: 6.90 E' Laterial: 13.80 E/E' Lat: 5.30 Right Ventricle TAPSE (mm): 24.00 TVS' Ulices: 12.70 Tricuspid Valve RA Press: 3.00 Great Vessels Aorta Sinus of Valsalva: 2.82 2.0-3.[address] [place]: 2.17 1.7-3.4 cm Ao Asc: 2.30 2.1-3.4 cm Updated in Other Vendor System with Status of Final Teo Medina MD electronically signed on 04/27/2022 11:40:05 AM with status of Final
--- NOTE | 2022-04-27 10:05 | PM.CNCAR ---
History of Present Illness History of Present Illness Date of Service: 04/27/22 Chief complaint: Chest pain Narrative: This is a cardiology consultation regarding chest pain. Patient presents with pain in the substernal area and left chest. Radiating the left underarm. Has been constant. Present during rest as well as exertion. In the H and P, mention to have worsening with deep inspiration but to me he denies that part. Shortness of breath somewhat variable. On some occasions, he has had some breathing issues going up stairs but not other times. Can walk fine on level ground. No significant leg swelling. Sensation of heart racing at different times and this happened several times in the past. No viral illness preceding this. No history of any coronary disease myocardial infarction or cardiomyopathy or any other cardiac issues. Of note, patient is mentioned to be COVID positive in the H&P but in the actual lab test, this is negative. Regarding family history, not very clear but mother might have cardiomyopathy. He states that she was told to have a heart function of 26%. And that she needs a pacemaker. Hence wonder if she has the underlying cardiomyopathy and requires ICD. Patient does not know beyond this. Review of Systems Review of Systems: Yes all other systems are reviewed and are negative Constitutional: Constitutional: Reports as per HPI and Reports no additional constitutional complaints Eyes: Eyes: Reports as per HPI and Denies no additional eye complaints ENT: Denies system reviewed and no additional complaints, except as documented and Reports as per HPI Cardiovascular: Cardiovascular: Reports as per HPI, Reports no additional cardiovascular complaints, Denies acrocyanosis, Denies cool extremities, Denies chest pain, Denies leg edema, Denies lightheadedness, Denies palpitations and Denies dyspnea Respiratory: Respiratory: Reports as per HPI, Denies no additional respiratory complaints and Denies dyspnea Gastrointestinal: Gastrointestinal: Reports as per HPI and Denies no additional gastrointestinal complaints Genitourinary: Genitourinary: Reports no additional male genitourinary complaints and Reports as per HPI Musculoskeletal: Musculoskeletal: Reports no additional musculoskeletal complaints and Reports as per HPI Integumentary/Breasts: Skin/Breast: Reports system reviewed and no additional complaints, except as docu Neurologic: Reports system reviewed and no additional complaints, except as documented and Reports as per HPI Psychiatric: Psychiatric: Reports no additional psychiatric complaints and Reports as per HPI Endocrine: Endocrine: Reports no additional endocrine complaints, Reports as per HPI and Denies palpitations Hematologic/Lymphatic: Hematologic/Lymphatic: Reports no additional hematologic/lymphatic complaints and Reports as per HPI Allergic/Immunologic: Allergic/Immunologic: Reports no additional allergic/immunologic complaints and Reports as per HPI [facility] [place] Past Medical History Medical History No known health problems Family History Family History (Updated 04/27/22 @ 10:08 by Teo Medina MD) Mother Cardiomyopathy Surgical History Surgical History No pertinent past surgical history Social History Social History Use of substances other than those prescribed or required for medical reasons: No Advance Directives: No Advance Directives Information Provided: No Meds Allergies Allergy/AdvReac Type Severity Reaction Status Date / Time No Known Allergies Allergy Verified 03/17/21 13:28 Active Medications: Current Medications Acetaminophen (Acetaminophen 325 Mg Tablet) 650 mg PO Q6H PRN PRN Reason: Pain, Mild (Pain Scale 1-3) Docusate Sodium (Docusate Sodium 100 Mg Capsule) 100 mg PO BID ARIANA Ondansetron HCl (Ondansetron Hcl 4 Mg/2 Ml Vial) 4 mg IVPUSH Q8H PRN PRN Reason: Nausea and Vomiting Sodium Chloride (0.9 % Sodium Chloride Flush 3 Ml Syringe) 3 ml IVFLUSH QSHIFT ARIANA Last Admin: 04/27/22 08:04 Dose: Not Given Physical Exam Vital Signs: Vital Signs: Last Vital Signs Temp 98.0 F 04/27/22 08:50 Pulse 76 04/27/22 08:50 Resp 18 04/27/22 08:50 BP 101/60 04/27/22 08:50 Pulse Ox 99 04/27/22 08:50 O2 Del Method 04/27/22 08:50 BMI result Body Mass Index 34.7 Const: General: comfortable and no acute distress Orientation/consciousness: patient oriented x3 HEENT: Other: Unremarkable Head: Yes normal to inspection Neck: Neck: Yes normal visual inspection Chest: Chest palpation & inspection: normal inspection of the chest Resp: Auscultation: clear to auscultation bilaterally Cardio: Palpation: normal PMI Heart sounds: S1 normal heart sound present, S2 normal heart sound present, no gallops, no murmurs and no rubs GI: Palpation (GI): Soft to palpation Back/Spine/Pelvis: Other: unremarkable Skin: General skin exam: no rashes or lesions noted Neuro: General: patient oriented x3 Extrem: General: Yes normal to inspection Psych: Mental Status: mental status grossly normal Objective Labs and Meds 04/27/22 06:34 04/27/22 06:34 Lab results: Laboratory Results - last 24 hr 04/26/22 04/26/22 04/26/22 20:37 20:37 22:25 WBC 9.4 RBC 5.38 Hgb 16.0 Hct 45.5 MCV 84.6 MCH 29.7 MCHC 35.2 RDW 11.9 Plt Count 243 MPV 10.2 Immature Gran % (Auto) 0.2 Neut % (Auto) 59.8 Lymph % (Auto) 33.3 [place] % (Auto) 5.6 Eos % (Auto) 0.6 Baso % (Auto) 0.5 Lymph # (Auto) 3.1 [place] # (Auto) 0.5 Eos # (Auto) 0.1 Baso # (Auto) 0.1 Abs Immat Gran (auto) 0.02 Absolute Neuts (auto) 5.6 Absolute Nucleated RBC 0.000 Nucleated RBC % (auto) 0.0 D-Dimer High Sensitivty Sodium 142 Potassium 3.5 Chloride 104 Carbon Dioxide 25 Anion Gap 17 BUN 16 Creatinine 1.31 Estim Creat Clear Calc 76.9 Estimated GFR > 60 Random Glucose 179 H Calcium 9.7 Magnesium 1.7 Total Bilirubin 1.0 Direct Bilirubin 0.3 AST 19 ALT 25 Alkaline Phosphatase 58 Troponin I High Sens 61.0 H Total Protein 7.2 Albumin 4.8 TSH 0.52 Urine Opiates Screen Urine Fentanyl Screen Ur Barbiturates Screen Ur Phencyclidine Scrn Ur Amphetamines Screen U Benzodiazepines Scrn Urine Cocaine Screen U Marijuana (THC) Screen COVID-19 (BOBBY) COVID-19 Clin Com 04/27/22 04/27/22 04/27/22 00:23 00:23 02:20 WBC RBC Hgb Hct MCV MCH MCHC RDW Plt Count MPV Immature Gran % (Auto) Neut % (Auto) Lymph % (Auto) [place] % (Auto) Eos % (Auto) Baso % (Auto) Lymph # (Auto) [place] # (Auto) Eos # (Auto) Baso # (Auto) Abs Immat Gran (auto) Absolute Neuts (auto) Absolute Nucleated RBC Nucleated RBC % (auto) D-Dimer High Sensitivty < 150 Sodium Potassium Chloride Carbon Dioxide Anion Gap BUN Creatinine Estim Creat Clear Calc Estimated GFR Random Glucose Calcium Magnesium Total Bilirubin Direct Bilirubin AST ALT Alkaline Phosphatase Troponin I High Sens 74.4 H 68.6 H Total Protein Albumin TSH Urine Opiates Screen Urine Fentanyl Screen Ur Barbiturates Screen Ur Phencyclidine Scrn Ur Amphetamines Screen U Benzodiazepines Scrn Urine Cocaine Screen U Marijuana (THC) Screen COVID-19 (BOBBY) COVID-Second Wind 04/27/22 04/27/22 04/27/22 03:10 05:42 06:34 WBC 6.0 RBC 4.80 Hgb 14.7 Hct 41.5 L MCV 86.5 MCH 30.6 MCHC 35.4 RDW 12.1 Plt Count 192 MPV 10.9 Immature Gran % (Auto) 0.2 Neut % (Auto) 42.5 L Lymph % (Auto) 43.2 H [place] % (Auto) 9.5 Eos % (Auto) 3.9 Baso % (Auto) 0.7 Lymph # (Auto) 2.6 [place] # (Auto) 0.6 Eos # (Auto) 0.2 Baso # (Auto) 0.0 Abs Immat Gran (auto) 0.01 Absolute Neuts (auto) 2.5 Absolute Nucleated RBC 0.000 Nucleated RBC % (auto) 0.0 D-Dimer High Sensitivty Sodium Potassium Chloride Carbon Dioxide Anion Gap BUN Creatinine Estim Creat Clear Calc Estimated GFR Random Glucose Calcium Magnesium Total Bilirubin Direct Bilirubin AST ALT Alkaline Phosphatase Troponin I High Sens Total Protein Albumin TSH Urine Opiates Screen Not Detected Urine Fentanyl Screen Not Detected Ur Barbiturates Screen Not Detected Ur Phencyclidine Scrn Not Detected Ur Amphetamines Screen Not Detected U Benzodiazepines Scrn Not Detected Urine Cocaine Screen Not Detected U Marijuana (THC) Screen POSITIVE H COVID-19 (BOBBY) Negative COVID-Second Wind See Note 04/27/22 06:34 WBC RBC Hgb Hct MCV MCH MCHC RDW Plt Count MPV Immature Gran % (Auto) Neut % (Auto) Lymph % (Auto) [place] % (Auto) Eos % (Auto) Baso % (Auto) Lymph # (Auto) [place] # (Auto) Eos # (Auto) Baso # (Auto) Abs Immat Gran (auto) Absolute Neuts (auto) Absolute Nucleated RBC Nucleated RBC % (auto) D-Dimer High Sensitivty Sodium 143 Potassium 3.5 Chloride 105 Carbon Dioxide 27 Anion Gap 15 BUN 19 H Creatinine 0.97 Estim Creat Clear Calc 103.9 Estimated GFR > 60 Random Glucose 124 H Calcium 9.3 Magnesium Total Bilirubin 1.1 H Direct Bilirubin AST 17 ALT 21 Alkaline Phosphatase 49 Troponin I High Sens Total Protein 6.3 L Albumin 4.2 TSH Urine Opiates Screen Urine Fentanyl Screen Ur Barbiturates Screen Ur Phencyclidine Scrn Ur Amphetamines Screen U Benzodiazepines Scrn Urine Cocaine Screen U Marijuana (THC) Screen COVID-19 (BOBBY) COVID-19 Clin Com ECG Interpretation: EKG with sinus tachycardia, 124/Min; possible left atrial enlargement; nonspecific ST-T changes; normal CA and corrected QT. Imaging Radiologist's impression: Impressions Chest X-Ray 04/26/22 20:42 IMPRESSION: Normal chest radiographs. Assessment and Plan (1) Chest pain: Status: Acute (2) Elevated troponin: Status: Acute Plan High sensitivity troponins are 61, 74 followed by 68. EKG shows no clear ischemic changes. Chest x-ray unremarkable. COVID is negative. Marijuana screen positive. Overall, chest pain that seems somewhat atypical but with positive enzymes. Not clearly suggestive of NSTEMI but contralateral completely either. Myopericarditis other possibility. Will start with an echocardiogram. Further plan to be decided. Time Spent With Patient Time: Total time managing care of this patient today ____ minutes. Procedures Date of Service Date of Service: 04/27/22
[2022-04-27] MEDS: Docusate Sodium 100 MG CAPSULE PO (10:07)
--- NOTE | 2022-04-27 11:21 | MHC.CM.PN ---
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
[2022-04-27 12:04] LABS: Erythrocyte Sedimentation Rate 2 MM/HR (0-15)
[2022-04-27] MEDS: 0.9 % Sodium Chloride Flush 3 ML SYRINGE IVFLUSH (14:31)
[2022-04-27] MEDS: Aspirin Enteric Coated 325 MG TABLET.DR PO (14:31)
--- NOTE | 2022-04-27 14:31 | PM.EVENT ---
Event Note Date of Service: 04/27/22 Event Note: seen and examined this morning follow up for chest pain 31 year old with no significant past medical history presents to the hospital complaints of palpitations and chest pain chest pain slightly elevated troponin. no clear ischemic changes on EKG no chest pain at this time seen by cardiology echo obtained, no WMA. crp, esr normal plan to start asa, heparin drip. [place] [facility] [place] palpitations EKG shows sinus tachycardia no covid 19 - tested + in 2021, tested negative today attending - dr. eason Time Spent With Patient Time: Total time managing care of this patient today ____ minutes.
[2022-04-27 14:45] VITALS: BMI 33.3
--- NOTE | 2022-04-27 14:53 | P.DS_ITS ---
DS: Providers Provider Date of Service: 04/27/22 Date of admission: 04/27/22 04:58 Date of discharge: 04/27/22 Primary care physician: None Physician Consults: 04/27/22 04:59 Consult to Cardiology Routine Consulting Provider: Teo Medina Reason for consultation: cp Has provider been notified: Yes Attending physician on discharge: Keegan Austin Discharging clinician: Nallely Ruth DS: Diagnosis Discharge Diagnosis (1) Chest pain: (2) Elevated troponin: Status: Acute DS: Summary Hospital Course Hospital Course: From H&P on day of admission ?this is a 31-year-old male with no significant past medical history presents to the hospital with complaints of chest pain and palpitations.? Patient reports pain is left-sided, radiating to the under arm, constant, occurred when walking, worse with deep inspiration.? Reports no similar in the past.? Denies any shortness of breath, no abdominal pain nausea or vomiting, no headache or change in vision, no urinary symptoms and no lower extremity edema.he reports that he does have episodes of palpitations at random times are resolved spontaneously.? This has been happening for several months. On arrival to the ED patient hemodynamically stable with a heart rate in the 130s sinus? Tachycardia, resolved spontaneously now in the 70s Labs are significant for troponin initially of 61 increased to 74.4 decreased to 68.6, patient is COVID-19 positive Asymptomatic with no cough? and no shortness of breath ?EKG reviewed by me shows T-wave inversions in V1,? nonspecific ST T wave changes ?this was discussed with Cardiology, wants patient to be admitted for further evaluation chest pain. Patient was admitted to the hospital for evaluation of chest pain. He underwent echocardiogram which did not show any evidence of wall motion abnormality. Inflammatory markers including ESR and CRP were were checked and were both within normal limits. He was seen in consultation by Cardiology and the decision was made to treat him with aspirin and start heparin drip. He will be transferred to [facility] for further investigation including possible coronary CTA versus cardiac catheterization. Initially documented to be COVID-19 positive however this was an old lab from 2021, he tested positive for covid 19 today Time Spent with Patient Time attestation: Total time managing care of this patient today ____ minutes. Discharge coordination time: Greater than 30 minutes Quality: Safe Use of Opioids Does Pt have an Active Cancer Diagnosis on the Problem List?: No Quality: Stroke Does the patient have a stroke diagnosis?: No Physical Exam Vital Signs: Vital Signs: Last Vital Signs Temp 98.0 F 04/27/22 08:50 Pulse 76 04/27/22 08:50 Resp 18 04/27/22 08:50 BP 101/60 04/27/22 08:50 Pulse Ox 99 04/27/22 08:50 O2 Del Method 04/27/22 08:50 BMI result Body Mass Index 33.3 Const: General: cooperative, comfortable, no acute distress, alert and awake Nutritional Appearance: overweight Orientation/consciousness: patient oriented x3 Resp: Effort & Inspection: normal respiratory effort and able to speak in complete sentences Cardio: Rate: regular rate Heart sounds: S1 normal heart sound present and S2 normal heart sound present GI: Inspection: No distended Palpation (GI): Soft to palpation Neuro: General: patient oriented x3 Extrem: General: Yes no pedal edema DS: Data Data Completed and Pending Labs on day of discharge: Laboratory Results - last 24 hr 04/26/22 04/26/22 04/26/22 20:37 20:37 22:25 WBC 9.4 RBC 5.38 Hgb 16.0 Hct 45.5 MCV 84.6 MCH 29.7 MCHC 35.2 RDW 11.9 Plt Count 243 MPV 10.2 Immature Gran % (Auto) 0.2 Neut % (Auto) 59.8 Lymph % (Auto) 33.3 [place] % (Auto) 5.6 Eos % (Auto) 0.6 Baso % (Auto) 0.5 Lymph # (Auto) 3.1 [place] # (Auto) 0.5 Eos # (Auto) 0.1 Baso # (Auto) 0.1 Abs Immat Gran (auto) 0.02 Absolute Neuts (auto) 5.6 Absolute Nucleated RBC 0.000 Nucleated RBC % (auto) 0.0 ESR D-Dimer High Sensitivty Sodium 142 Potassium 3.5 Chloride 104 Carbon Dioxide 25 Anion Gap 17 BUN 16 Creatinine 1.31 Estim Creat Clear Calc 76.9 Estimated GFR > 60 Random Glucose 179 H Calcium 9.7 Magnesium 1.7 Total Bilirubin 1.0 Direct Bilirubin 0.3 AST 19 ALT 25 Alkaline Phosphatase 58 Troponin I High Sens 61.0 H C-Reactive Protein Total Protein 7.2 Albumin 4.8 TSH 0.52 Urine Opiates Screen Urine Fentanyl Screen Ur Barbiturates Screen Ur Phencyclidine Scrn Ur Amphetamines Screen U Benzodiazepines Scrn Urine Cocaine Screen U Marijuana (THC) Screen COVID-19 (BOBBY) COVID-19 Turnip Truck II 04/27/22 04/27/22 04/27/22 00:23 00:23 02:20 WBC RBC Hgb Hct MCV MCH MCHC RDW Plt Count MPV Immature Gran % (Auto) Neut % (Auto) Lymph % (Auto) [place] % (Auto) Eos % (Auto) Baso % (Auto) Lymph # (Auto) [place] # (Auto) Eos # (Auto) Baso # (Auto) Abs Immat Gran (auto) Absolute Neuts (auto) Absolute Nucleated RBC Nucleated RBC % (auto) ESR D-Dimer High Sensitivty < 150 Sodium Potassium Chloride Carbon Dioxide Anion Gap BUN Creatinine Estim Creat Clear Calc Estimated GFR Random Glucose Calcium Magnesium Total Bilirubin Direct Bilirubin AST ALT Alkaline Phosphatase Troponin I High Sens 74.4 H 68.6 H C-Reactive Protein Total Protein Albumin TSH Urine Opiates Screen Urine Fentanyl Screen Ur Barbiturates Screen Ur Phencyclidine Scrn Ur Amphetamines Screen U Benzodiazepines Scrn Urine Cocaine Screen U Marijuana (THC) Screen COVID-19 (BOBBY) COVID-19 Turnip Truck II 04/27/22 04/27/22 04/27/22 03:10 05:42 06:34 WBC 6.0 RBC 4.80 Hgb 14.7 Hct 41.5 L MCV 86.5 MCH 30.6 MCHC 35.4 RDW 12.1 Plt Count 192 MPV 10.9 Immature Gran % (Auto) 0.2 Neut % (Auto) 42.5 L Lymph % (Auto) 43.2 H [place] % (Auto) 9.5 Eos % (Auto) 3.9 Baso % (Auto) 0.7 Lymph # (Auto) 2.6 [place] # (Auto) 0.6 Eos # (Auto) 0.2 Baso # (Auto) 0.0 Abs Immat Gran (auto) 0.01 Absolute Neuts (auto) 2.5 Absolute Nucleated RBC 0.000 Nucleated RBC % (auto) 0.0 ESR D-Dimer High Sensitivty Sodium Potassium Chloride Carbon Dioxide Anion Gap BUN Creatinine Estim Creat Clear Calc Estimated GFR Random Glucose Calcium Magnesium Total Bilirubin Direct Bilirubin AST ALT Alkaline Phosphatase Troponin I High Sens C-Reactive Protein Total Protein Albumin TSH Urine Opiates Screen Not Detected Urine Fentanyl Screen Not Detected Ur Barbiturates Screen Not Detected Ur Phencyclidine Scrn Not Detected Ur Amphetamines Screen Not Detected U Benzodiazepines Scrn Not Detected Urine Cocaine Screen Not Detected U Marijuana (THC) Screen POSITIVE H COVID-19 (BOBBY) Negative COVID-19 TNC Com See Note 04/27/22 04/27/22 04/27/22 06:34 11:13 11:13 WBC RBC Hgb Hct MCV MCH MCHC RDW Plt Count MPV Immature Gran % (Auto) Neut % (Auto) Lymph % (Auto) [place] % (Auto) Eos % (Auto) Baso % (Auto) Lymph # (Auto) [place] # (Auto) Eos # (Auto) Baso # (Auto) Abs Immat Gran (auto) Absolute Neuts (auto) Absolute Nucleated RBC Nucleated RBC % (auto) ESR 2 D-Dimer High Sensitivty Sodium 143 Potassium 3.5 Chloride 105 Carbon Dioxide 27 Anion Gap 15 BUN 19 H Creatinine 0.97 Estim Creat Clear Calc 103.9 Estimated GFR > 60 Random Glucose 124 H Calcium 9.3 Magnesium Total Bilirubin 1.1 H Direct Bilirubin AST 17 ALT 21 Alkaline Phosphatase 49 Troponin I High Sens C-Reactive Protein 0.10 Total Protein 6.3 L Albumin 4.2 TSH Urine Opiates Screen Urine Fentanyl Screen Ur Barbiturates Screen Ur Phencyclidine Scrn Ur Amphetamines Screen U Benzodiazepines Scrn Urine Cocaine Screen U Marijuana (THC) Screen COVID-19 (BOBBY) COVID-19 Clin Com Discharge Plan Discharge Anticipated Discharge Date/Time: 04/27/22 17:02 Patient Disposition: Xfer Acute Care Hospital Discharge Diagnosis: chest pain Referrals: [facility] [place] Cardiovascular Services [Provider Group] - 2 days Physician,None [Primary Care Provider] - 2 days Discharge Medications: New heparin(porcine) in 0.45% NaCl 25,000 unit/250 mL Parenteral Solution 25,000 unit continuous IV infusion .Q0M Qty: 6000 0RF Discharge Orders: Discharge Order (Routine); Ordered 04/27/22 Ordered By: Nallely Ruth Activity on Discharge: As tolerated Stand Alone Forms: Patient Portal Discharge page Care Plan Goals: determine cause of chest pain Health Concerns: chest pain, rule out ACS Plan of Treatment: Transfer to tertiary care facility for further management Assessment: 31 year old admitted with chest pain, now on heparin drip and plan to transfer to [facility] for further investigation including piossible Coronary CTA versus cardiac catheterization Discharge Date/Time: 04/27/22 18:00
[2022-04-27] MEDS: Heparin Sodium,Porcine 5,000 UNIT/ML VIAL 4000 UNIT IVPUSH (15:29)
[2022-04-27 15:41] LABS: Hematocrit 44.6 % (42.0-52.0); Hemoglobin 15.5 g/dl (14.0-18.0); Mean Corpuscular HGB Conc 34.8 g/dl (31.0-36.0); Mean Corpuscular Hemoglobin 29.5 pg (27.0-33.0); Mean Corpuscular Volume 84.8 fL (80.0-98.0); Mean Platelet Volume 10.7 fL (9.4-12.4); Platelet Count 194 X10*3/uL (160-400); Red Blood Count 5.26 X10*6/uL (4.60-5.80); White Blood Count 6.3 X10*3/uL (4.8-10.8)
[2022-04-27] MEDS: Heparin Sodium,Porcine/1/2NS 25,000 UNIT/250 ML IV.SOLN 9.92 UNIT IVCONT (15:44)
[2022-04-27 15:47] LABS: INTERNATIONAL NORM RATIO 1.1 (0.9-1.1); Prothrombin Time 12.3 SEC (10.0-13.1)
[2022-04-27 15:49] LABS: PTT Heparin Drip 31.7 SEC (53-77.9)
[2022-04-27 15:51] VITALS: BP 133/65; PULSE 94; RESP 16; TEMP 36.7; O2SAT 97
--- NOTE | 2022-04-27 15:52 | MHC.EDTECH ---
this pct assumed care of pt at 1500 ,pt rounding done ,vitals sign taken ,pt is resting quietly ,waiting to be transfer to [facility] .
--- NOTE | 2022-04-27 16:56 | PC.NURSE ---
Patient c/o headache but didn't want anything for the pain. tele: sinus rythym-sinus tachycardia 80-120's at rest. Patient denies sob, chest pain, and dizziness. Patient has an 20g iv in left AC. Called García ROSENTHAL at [place] [phone] for report patient is on his way with Corinna.
== END 2022-04-27 18:00 | disposition short-term general hospital (02) ==
LOC: HO.ED 04-27 00:46 → HO.EDOVER 04-27 05:05 → HO.S3 04-27 14:46 → HO.EDOVER 04-27 15:57
PROVIDERS: Physician Assistant; Admitting Provider Internal Medicine; Emergency Provider Internal Medicine; Visit Provider Physician Assistant Medical
DX: R07.9 Chest pain, unspecified (principal); R77.8 Other specified abnormalities of plasma proteins; R51.9 Headache, unspecified; R00.2 Palpitations; I20.0 Unstable angina; F41.9 Anxiety disorder, unspecified
CPT/HCPCS: 36415; 71046; 80048; 80053; 80076; 80307; 83735; 84443; 84484; 85025; 85027; 85379; 85610; 85652; 85730; 86140; 87635; 93005; 93306; 93356; 96372; 96374; 96376; 99221; 99285; J1643; J1885; Q9957

== ENCOUNTER 2024-04-24 05:26 | Emergency (ER) | payer OTHER, SELFPAY ==
--- NOTE | ~2024-04-24 | XR_ITS ---
CLINICAL HISTORY: pain Left foot three views Comparison: None Findings: Oblique essentially nondisplaced fracture through the neck of the distal phalanx 3rd toe. No other fractures. Mild hallux valgus. Otherwise normal bone density and alignment. Soft tissues intact. Impression: Distal phalanx fracture 3rd toe. This document has been electronically signed by: Jesus Alberto Shah MD on 04/24/2024 06:37:00
[2024-04-24 05:39] VITALS: BP 162/92; PULSE 97; RESP 20; TEMP 37.3; O2SAT 100; BMI 36.2
--- NOTE | 2024-04-24 19:37 | ED.EXTPRO ---
HPI - Extremity Problem General Chief complaint: Extremity Problem Stated complaint: toe inj Time Seen by Provider: 04/24/24 19:33 Source: patient and RN notes reviewed Mode of arrival: ambulatory Limitations: no limitations History of Present Illness ED Provider: Fanta Fink PA-C HPI Narrative: This is a 33-year-old male who presents emergency department for evaluation of left 3rd toe pain. Patient states that while he was at work today he accidentally dropped a paint try directly onto his toe which was covered with his shoe this morning. He states that he has had pain since. Pain worsens with weight-bearing, and with palpation. Denies taking any medications at home to treat his current symptoms. No other complaints or concerns at this time. MD Complaint: extremity pain Onset (ago): hour(s) Pain Consistency: constant Location: left Quality: aching Radiation: none Relieving factors: rest Exacerbating factors: weight bearing and palpation Associated symptoms: denies other symptoms Related Data Previous Rx's ?Medication ?Instructions ?Recorded heparin (porcine) 25,000 unit/250 25,000 unit (250 mL) continuous IV 04/27/22 mL in 0.45 % sodium chloride IV infusion .Q0M #6,000 mL soln acetaminophen 500 mg tablet 1,000 mg (2 x 500 mg) PO Q8H PRN 04/24/24 (Tylenol Extra Strength) pain #30 tabs ibuprofen 600 mg tablet 600 mg PO Q6H PRN pain #30 tabs 04/24/24 Allergies Allergy/AdvReac Type Severity Reaction Status Date / Time No Known Allergies Allergy Verified 04/24/24 05:41 Review of Systems Review of Systems: Yes all other systems are reviewed and are negative [facility] Past Medical History Medical History No known health problems Surgical History No pertinent past surgical history Family History Family History (Updated 04/27/22 @ 10:08 by Teo Medina MD) Mother Cardiomyopathy Social History Social History service: No Current occupational status: employed Physical Exam Vital Signs: Vital Signs: Last Vital Signs Temp 99.1 F 04/24/24 19:55 Pulse 97 02/20/25 19:55 Resp 20 04/24/24 19:55 BP 162/92 H 04/24/24 19:55 Pulse Ox 100 04/24/24 19:55 O2 Del Method Room Air 04/24/24 19:55 BMI result Body Mass Index 36.2 Const: Other: General: Awake, alert, and oriented X3. No acute distress. HEENT: Normal inspection CVS: Normal heart rate and rhythm. Pulses normal. Respiratory: No respiratory distress Skin: Warm, dry, no rashes noted to exposed skin. Normal skin color. Normal skin turgor. Extremities: See below Neuro: Oriented X 3. No motor deficit. No sensory deficit. Extrem: Other: Left 3rd toe with tenderness palpation along the DIP with ecchymosis seen. Capillary refill less than 2 seconds, full ROM. No open wounds or lacerations. Medical Decision Making Medical Decision Making MDM Narrative: This is a 33-year-old male who presents emergency department with complaints of left 3rd digit pain status post dropping a pain try onto it. Patient has been in the emergency department for approximately 14 hours prior to assessment due to prolonged wait times. Upon initial assessment, blood pressure elevated at 162/92, all other vital signs within normal limits. Left 3rd digit is ecchymotic, with tenderness palpation. X-rays were performed revealing distal phalanx fracture of the 3rd toe. Reviewed findings with patient. Will place in postoperative shoe. He was ambulatory with steady gait. He will follow-up with the child development specialist. Discharged on Tylenol and Motrin. Given strict return precautions. Patient stable for discharge. Differential Diagnosis Differential Diagnoses: The differential diagnosis associated with the presentation includes Fracture, contusion, dislocation, sprain Radiology Impression Discussion of test interpretation with radiology: I have reviewed the radiologist's reading. Radiologist Impression: CLINICAL HISTORY: pain Left foot three views Comparison: None Findings: Oblique essentially nondisplaced fracture through the neck of the distal phalanx 3rd toe. No other fractures. Mild hallux valgus. Otherwise normal bone density and alignment. Soft tissues intact. Impression: Distal phalanx fracture 3rd toe. This document has been electronically signed by: Jesus Alberto Shah MD on 04/24/2024 06:37:00 Discharge Plan Discharge Clinical Impression: Closed fracture of phalanx of left third toe Patient Disposition: Home, Self-Care Instructions: Foot Fracture in Adults (ED), Post Surgical Shoe (ED) Additional Instructions: You were seen in the emergency department due to left 3rd toe pain. Your 3rd toe is broken. Please stay and postoperative shoe until you follow-up with the child development specialist. Call tomorrow to make an appointment. Alternate between ibuprofen and or Tylenol as needed for pain and symptoms. Rest, ice, and elevate your foot. If any new or worsening symptoms occur including but not limited to loss of sensation to your toe, severe pain, chest pain, shortness of breath, please seek emergent care. Prescriptions: New ibuprofen 600 mg tablet 600 mg PO Q6H PRN (Reason: pain) Qty: 30 0RF acetaminophen [Tylenol Extra Strength] 500 mg tablet 1,000 mg PO Q8H PRN (Reason: pain) Qty: 30 0RF No Action heparin(porcine) in 0.45% NaCl 25,000 unit/250 mL Parenteral Solution 25,000 unit continuous IV infusion .Q0M Qty: 6000 0RF Referrals: [facility] [Provider Group] Stand Alone Forms: Work/School Release Interventions: ED Discharge Assessment Last Done: 04/24/24 19:55 Discharge Date/Time: 04/24/24 19:55 Print Language: Afghan
--- OUTSIDE RECORDS SUMMARY | 2024-04-24 19:47 | XMS_ITS | Encounter Summary ---
Author Organization [facility] Address [address] [place] [id number] Phone Care Team Providers Care Occupational Therapy Asst Name Role Phone Unavailable Primary Care Provider Unavailabl e Encounter Details Date Type Department Care Team (Late st Contact Info) Description 10/19/2016 Conversion Encounter [facility] - [address] [address] Social History Tobacco Use Types Packs/Day Years Used Date Smoking Tobacco: Never Assessed Sex and Gender Information Value Date Recorded Sex Assigned at Not on file Legal Sex Male 4:15 PM EDT Gender Identity Not on file Sexual Orientation Not on file documented as of this encounter Plan of Treatment Not on file documented as of this encounter Visit Diagnoses Not on filedocumented in this encounter
[2024-04-24 19:55] VITALS: BP 162/92; PULSE 97; RESP 20; TEMP 37.3; O2SAT 100
== END 2024-04-24 19:55 | disposition home or self-care (01) ==
PROVIDERS: Emergency Provider Internal Medicine
DX: S92.502A Displaced unspecified fracture of left lesser toe(s), initial encounter for closed fracture (principal); M79.672 Pain in left foot; Y29.XXXA Contact with blunt object, undetermined intent, initial encounter; Y93.9 Activity, unspecified; Y92.89 Other specified places as the place of occurrence of the external cause; Y99.0 Civilian activity done for income or pay
CPT/HCPCS: 73630; 99282; 99283

== ENCOUNTER → 2024-04-24 05:55 | Outpatient (BNV) | payer OTHER, SELFPAY | PROVIDERS: Visit Provider Radiology Diagnostic Radiology | DX: S92.532A Displaced fracture of distal phalanx of left lesser toe(s), initial encounter for closed fracture (principal) | CPT/HCPCS: 73630 ==

== ENCOUNTER → 2024-04-28 11:03 | Outpatient (BNVA) | payer OTHER, SELFPAY | PROVIDERS: Visit Provider Physician Assistant Medical | DX: Z09 Encounter for follow-up examination after completed treatment for conditions other than malignant neoplasm (principal); S92.535A Nondisplaced fracture of distal phalanx of left lesser toe(s), initial encounter for closed fracture; W20.8XXA Other cause of strike by thrown, projected or falling object, initial encounter | CPT/HCPCS: 99202 ==

== ENCOUNTER → 2024-05-05 09:37 | Outpatient (BNVA) | payer OTHER, SELFPAY | PROVIDERS: Visit Provider Physician Assistant Medical | DX: S92.535D Nondisplaced fracture of distal phalanx of left lesser toe(s), subsequent encounter for fracture with routine healing (principal); W20.8XXD Other cause of strike by thrown, projected or falling object, subsequent encounter; Z02.79 Encounter for issue of other medical certificate | CPT/HCPCS: 99213 ==

== ENCOUNTER 2024-09-29 19:03 | Emergency (ER) | payer OTHER, SELFPAY ==
[2024-09-29 19:43] VITALS: BP 134/69; PULSE 75; RESP 18; TEMP 36.7; O2SAT 97; BMI 33.4
--- NOTE | 2024-09-29 19:43 | ED.GENADULT ---
HPI - General Adult General Chief complaint: Skin/Abscess/Foreign Body Stated complaint: ? wound infection Rt hip Time Seen by Provider: 09/29/24 19:45 Source: patient, RN notes reviewed and old records reviewed Mode of arrival: ambulatory Limitations: no limitations History of Present Illness ED Provider: Walter [facility] narrative: Patient is a 34-year-old male presenting to the emergency department with complaint of abscess to right hip for the past week. He states that yesterday the area began to open, has been spontaneously draining purulent/bloody drainage. Denies fevers, chills, body aches. Denies any pain with range of motion of hip or with ambulation. States the areas mildly pruritic. complaint: abscess Onset (ago): day(s) Related Data Previous Rx's ?Medication ?Instructions ?Recorded heparin (porcine) 25,000 unit/250 25,000 unit (250 mL) continuous IV 04/27/22 mL in 0.45 % sodium chloride IV infusion .Q0M #6,000 mL soln acetaminophen 500 mg tablet 1,000 mg (2 x 500 mg) PO Q8H PRN 04/24/24 (Tylenol Extra Strength) pain #30 tabs ibuprofen 600 mg tablet 600 mg PO Q6H PRN pain #30 tabs 04/24/24 cephalexin 500 mg capsule 500 mg PO QID #28 caps 09/29/24 Allergies Allergy/AdvReac Type Severity Reaction Status Date / Time No Known Allergies Allergy Verified 09/29/24 19:47 Review of Systems Review of Systems: As per hPI Yes all other systems are reviewed and are negative Constitutional: Constitutional: Reports as per HPI [facility] Past Medical History Medical History No known health problems Surgical History No pertinent past surgical history Family History Family History (Updated 04/27/22 @ 10:08 by Teo Medina MD) Mother Cardiomyopathy Social History Social History Advance Directives: No Advance Directives Information Provided: No service: No Current occupational status: employed Physical Exam ED Vital Signs: Vital Signs - 24 hr 09/29/24 19:43 Temperature 98.1 F Pulse Rate 75 Respiratory Rate 18 Blood Pressure 134/69 Pulse Oximetry 97 Oxygen Delivery Method Room Air BMI result Body Mass Index 33.4 Vital signs have been reviewed and appear to be correct. Blood pressure normal. Heart rate normal. Respiratory rate normal. Temperature normal. Oxygen saturation normal. Const General: cooperative, healthy appearing and no acute distress Orientation/consciousness: oriented to person, oriented to place, oriented to time and patient oriented x3 Limitations: no limitations HENMT Head: Yes normocephalic and Yes atraumatic Ears: external ears normal General nose exam: Normal external nose present Face and sinus: Yes face symmetric Mouth: oropharynx normal and moist mucous membranes Throat: Yes uvula midline Eyes Pupils: Equal, round and reactive pupils present Neck Neck: Yes normal visual inspection and Yes supple Resp Effort & Inspection: normal respiratory effort and able to speak in complete sentences Auscultation: clear to auscultation bilaterally Cardio Rate: regular rate Rhythm: regular rhythm Heart sounds: S1 normal heart sound present and S2 normal heart sound present GI Palpation (GI): Soft to palpation and nontender Auscultation: normoactive bowel sounds General: Yes no CVA tenderness Back/Spine/Pelvis Back: no CVA tenderness Skin General skin exam: elasticity normal and turgor normal Neuro General: oriented to person, oriented to place, oriented to time, patient oriented x3, moves all extremities, no focal motor deficits and CN's II-XI intact bilaterally Cranial nerves: Yes Equal, round and reactive pupils present Cognition (Neuro): normal cognition Extrem General: Yes full ROM, Yes no pedal edema and Yes no calf tenderness Upper/lower leg/hip images:  1. 3cm diameter abscess with central opening draining scant amount of purulent/bloody discharge, no surrounding erythema or warmth Psych Mental Status: mental status grossly normal Affect: normal affect Thought process: Normal thought process present Medical Decision Making Medical Decision Making MDM Narrative: Patient is a 34-year-old male presenting to the emergency department with complaint of abscess to right hip for the past week. On exam patient is awake, A+Ox3, VS WNL, afebrile, normal neurological exam without focal deficits, physical exam findings as above. Given reported symptoms and physical exam findings, initial differential includes but is not limited to abscess, folliculitis, cellulitis. Do not suspect septic joint. Will treat with keflex, advised patient on importance of checking area daily, and to return for worsening symptoms. Follow up with PCP. Patient verbalized understanding of and agreement with plan. Differential Diagnosis Differential Diagnoses: The differential diagnosis associated with the presentation includes as per mdm Admission/Observation Consideration of admission/observation: Escalation of care including admission/observation considered Patient would have been admitted to the hospital had their clinical presentation warranted hospital admission. External Record Review External record reviewed: Inpatient record, Office record and Outpatient record Prescription Management I considered prescription management with: Antibiotic Discharge Plan Discharge Clinical Impression: Cutaneous abscess of right hip Patient Disposition: Home, Self-Care Instructions: Abscess (ED), Abscess Follow-up (ED) Additional Instructions: You were evaluated in the ER for an abscess. Please keep the area surrounding the abscess clean and dry. You were given a prescription for antibiotics, please take the antibiotics as directed for the full course of the medication. You should perform a skin check of the area daily. If the abscess progresses you may have to have the abscess incised and drained. You can use Tylenol or ibuprofen per package directions as needed for pain. If necessary, you can alternate these medications so that you take one medication every 3 hours. For instance, at noon take ibuprofen, then at 3:00 p.m. take Tylenol, then at 6:00 p.m. take ibuprofen. You can apply warm compresses to the area, but to not attempt to squeeze it or pop it. Please schedule an appointment with your primary care physician as soon as possible for follow-up. Return to the emergency department if you experience fevers greater than 100.4? F, increased in area of redness or swelling, increasing amount of discharge from the area, increased tenderness around the area, or any other concerning symptoms. Prescriptions: New cephalexin 500 mg capsule 500 mg PO QID Qty: 28 0RF No Action heparin(porcine) in 0.45% NaCl 25,000 unit/250 mL Parenteral Solution 25,000 unit continuous IV infusion .Q0M Qty: 6000 0RF ibuprofen 600 mg tablet 600 mg PO Q6H PRN (Reason: pain) Qty: 30 0RF acetaminophen [Tylenol Extra Strength] 500 mg tablet 1,000 mg PO Q8H PRN (Reason: pain) Qty: 30 0RF Print Language: Spanish
[2024-09-29 20:32] VITALS: BP 134/69; PULSE 75; RESP 18; TEMP 36.7; O2SAT 97
== END 2024-09-29 20:32 | disposition home or self-care (01) ==
PROVIDERS: Emergency Provider Emergency Medicine Emergency Medical Services
DX: L02.415 Cutaneous abscess of right lower limb (principal)
CPT/HCPCS: 99282; 99283

== ENCOUNTER → 2025-01-20 11:56 | Outpatient (BNVA) | payer OTHER, SELFPAY | PROVIDERS: Visit Provider Registered Nurse | DX: S00.93XA Contusion of unspecified part of head, initial encounter (principal); S90.32XA Contusion of left foot, initial encounter; W20.8XXA Other cause of strike by thrown, projected or falling object, initial encounter; Z02.79 Encounter for issue of other medical certificate | CPT/HCPCS: 73630; 99203 ==

== ENCOUNTER → 2025-01-23 14:55 | Outpatient (BNVA) | payer OTHER, SELFPAY | PROVIDERS: Visit Provider Physician Assistant Medical | DX: S00.93XA Contusion of unspecified part of head, initial encounter (principal); S90.32XA Contusion of left foot, initial encounter; W20.8XXA Other cause of strike by thrown, projected or falling object, initial encounter; Z02.79 Encounter for issue of other medical certificate | CPT/HCPCS: 99213 ==